=== PATIENT | male | born 1960 | race Hispanic/Latino ===

== ENCOUNTER 2017-04-07 14:42 | Emergency (ER) | payer BC, MEDICARE ==
[2017-04-07 14:59] VITALS: RESP 18; TEMP 99.2; O2SAT 98; BMI 30.7
--- NOTE | 2017-04-07 15:10 | ED PDOC ---
Arrival/HPI - General Chief Complaint: Cough, Cold, Congestion Time Seen by Provider: 04/07/17 15:05 Historian: Patient - History of Present Illness Narrative History of Present Illness (Text): 04/07/17 15:14 A 56 year old female, whose past medical history includes diverticulitis and family history of coronary artery disease, presents to the emergency department complaining of epigastric discomfort for the past three days, associated with belching. Patient was seen in office today and noted to have mild elevated blood pressure of 140/90 and new T wave changes in EKG. Patient presents to the emergency department for further evaluation. Patient denies any shortness of breath, vomiting, diaphoresis or any other complaints at this time. Time/Duration: < week Symptom Onset: Sudden Symptom Course: Unchanged Activities at Onset: Rest Context: Home Past Medical History - Provider Review Nursing Documentation Reviewed: Yes - Past History Past History: No Previous - Infectious Disease Hx of Infectious Diseases: None - Tetanus Immunization Tetanus Immunization: Up to Date - Cardiac Hx Pacemaker: No - Neurological Hx Paralysis: No - Hematological/Oncological Hx Blood Transfusions: No Hx Blood Transfusion Reaction: No - Musculoskeletal/Rheumatological Hx Musculoskeletal Disorders: No - Psychiatric Hx Emotional Abuse: No Hx Physical Abuse: No Hx Substance Use: No - Anesthesia Hx Anesthesia Reactions: No Hx Malignant Hyperthermia: No - Suicidal Assessment Feels Threatened In Home Enviroment: No Family/Social History - Physician Review Nursing Documentation Reviewed: Yes Family/Social History: No Known Family HX Smoking Status: Never Smoked Hx Alcohol Use: Yes (OCCASSIONAL) Hx Substance Use: No Hx Substance Use Treatment: No Allergies/Home Meds Allergies/Adverse Reactions: Allergies No Known Allergies Allergy (Verified 07/04/12 17:21) Home Medications: Home Meds Medication Instructions Recorded Confirmed No Known Home Med 07/04/12 06/03/15 Review of Systems - Physician Review All systems were reviewed & negative as marked: Yes - Review of Systems Respiratory: absent: SOB Gastrointestinal: Other (epigastric discomfort). absent: Vomiting Endocrine: absent: Diaphoresis Physical Exam - Physical Exam Narrative Physical Exam (Text): 04/07/17 15:12 Constitutional: No acute distress. Head: Normocephalic. Atraumatic. Eyes: PERRL. ENT: Moist mucous membranes. Neck: Supple. Cardiovascular: Regular rate. Chest: No tenderness. Respiratory: Clear to auscultation bilaterally. GI: mild epigastric tenderness, no rebound, no guarding Back: No CVA tenderness. Musculoskeletal: No tenderness or swelling of extremities. Skin: No rash. Neurologic: Alert, no focal deficit. Vital Signs Reviewed: Yes Vital Signs Temp Pulse Resp BP Pulse Ox 04/07/17 16:34 79 18 145/86 98 04/07/17 14:42 99.2 F 87 18 149/97 H 98 Temperature: Afebrile Blood Pressure: Hypertensive Pulse: Regular Respiratory Rate: Normal Appearance: Positive for: Well-Appearing, Non-Toxic, Comfortable Pain Distress: None Mental Status: Positive for: Alert and Oriented X 3 Medical Decision Making ED Course and Treatment: 04/07/17 15:06 Impression: A 56 year old male with epigastric discomfort. Plan: -- EKG -- chest xray -- labs -- Aspirin -- Reassess and disposition Prior Visits: Notes and results from previous visits were reviewed. Patient was last seen in the emergency department on 07/04/12 for evaluation of rectal bleeding. Progress Notes: 04/07/17 15:[address] Le at bedside, who recommends discharge home as symptoms have been present for 3 days. 04/07/17 15:15 EKG: Ordered, reviewed, and independently interpreted the EKG. Rate : 77 BPM Rhythm : NSR Interpretation : T wave inversion V3, No ST elevations or depressions - Lab Interpretations Lab Results: 04/07/17 15:30 04/07/17 15:30 Lab Results 04/07/17 15:30: Sodium 140, Potassium 3.9, Chloride 100, Carbon Dioxide 29, Anion Gap 15, BUN 15, Creatinine 0.9, Est GFR ( Amer) > 60, Est GFR (Non- Af Amer) > 60, Random Glucose 115 H, Calcium 9.7, Total Bilirubin 0.7, AST 23, ALT 35, Alkaline Phosphatase 63, Total Creatine Kinase 151, Troponin I < 0.01, Total Protein 7.9, Albumin 4.5, Globulin 3.4, Albumin/Globulin Ratio 1.3 04/07/17 15:30: WBC 8.3, RBC 4.78, Hgb 14.6, Hct 43.0, MCV 90.0, MCH 30.5, MCHC 34.0, RDW 12.8, Plt Count 199, MPV 9.9, Gran % 68.6 H, Lymph % (Auto) 17.6 L, [place] % (Auto) 12.7 H, Eos % (Auto) 1.0 L, Baso % (Auto) 0.1, Gran # 5.69, Lymph # 1.5, [place] # 1.1 H, Eos # 0.1, Baso # 0.01 - RAD Interpretation Radiology Orders: 04/07/17 15:11 CHEST PORTABLE [RAD] Stat - Medication Orders Current Medication Orders: Discontinued Medications Aspirin (Aspirin) 325 mg PO STAT STA Stop: 04/07/17 15:12 Last Admin: 04/07/17 15:25 Dose: 325 mg - Scribe Statement The provider has reviewed the documentation as recorded by the [place] Provider Scribe Attestation: All medical record entries made by the Scribe were at my direction and personally dictated by me. I have reviewed the chart and agree that the record accurately reflects my personal performance of the history, physical exam, medical decision making, and the department course for this patient. I have also personally directed, reviewed, and agree with the discharge instructions and disposition. Disposition/Present on Arrival - Present on Arrival Any Indicators Present on Arrival: No History of DVT/PE: No History of Uncontrolled Diabetes: No Urinary Catheter: No History of Decub. Ulcer: No History Surgical Site Infection Following: None - Disposition Have Diagnosis and Disposition been Completed?: Yes Diagnosis: Epigastric pain Disposition: HOME/ ROUTINE Disposition Time: 16:39 Patient Plan: Discharge Condition: STABLE Discharge Instructions (ExitCare): Epigastric Pain (ED) Referrals: Joey Le MD [Primary Care Provider] - Follow up with primary Forms: [employer] (Sami)
[2017-04-07 16:01] LABS: BASO # 0.01 K/mm3 (0.0-2.0); BASO % 0.1 % (0.0-3.0); EOS # 0.1 (0.0-0.7); GRAN # 5.69 (1.4-6.5); GRAN % 68.6 % (50.0-68.0); LYMPH # 1.5 (1.2-3.4); LYMPH % 17.6 % (22.0-35.0); MEAN CORPUSCULAR HEMOGLOBIN 30.5 pg (25.0-35.0); MEAN PLATELET VOLUME 9.9 fl (7.0-11.0); MONO # 1.1 (0.1-0.6); MONO % 12.7 % (1.0-6.0); RED CELL DISTRIBUTION WIDTH 12.8 % (11.5-14.5); WHITE BLOOD COUNT 8.3 10^3/ul (4.5-11.0)
[2017-04-07 16:14] LABS: ALB/GLOB RATIO 1.3 (1.1-1.8); ALKALINE PHOSPHATASE 63 U/L (38-126); ALT/SGPT 35 U/L (7-56); AST/SGOT 23 U/L (17-59); BILIRUBIN,TOTAL 0.7 mg/dL (0.2-1.3); BLOOD UREA NITROGEN 15 mg/dL (7-21); CALCIUM 9.7 mg/dL (8.4-10.5); CARBON DIOXIDE 29 mmol/L (21-33); CHLORIDE 100 mmol/L (95-110); GFR AFRICAN-AMERICAN > 60; GLUCOSE,RANDOM 115 mg/dL (70-110); POTASSIUM 3.9 mmol/L (3.6-5.0); SODIUM 140 mmol/L (132-148); TOTAL PROTEIN 7.9 g/dL (5.8-8.3)
--- NOTE | 2017-04-07 16:17 | RAD ---
HISTORY: epigastric pain radiating to chest COMPARISON: No prior. FINDINGS: LUNGS: No active pulmonary disease. PLEURA: No significant pleural effusion identified, no pneumothorax apparent. CARDIOVASCULAR: Normal. OSSEOUS STRUCTURES: No significant abnormalities. VISUALIZED UPPER ABDOMEN: Normal. OTHER FINDINGS: None. IMPRESSION: No active disease.
[2017-04-07 16:33] LABS: TROPONIN I < 0.01 ng/mL
[2017-04-07 16:34] VITALS: BP 145/86; PULSE 79
[2017-04-07 17:57] LABS: AMYLASE 64 U/L (35-125); LIPASE 132 U/L (23-300)
--- NOTE | 2017-04-08 13:23 | CARD ---
APPROVED REPORT EKG Measurement Heart [id number] <Conclusion> Normal sinus rhythm Possible Left atrial enlargement Borderline ECG
== END 2017-04-07 17:00 | disposition home or self-care (01) ==
LOC: ED 14:42
DX: R10.13 Epigastric pain (principal)